=== PATIENT | female | born 1995 | race African-American/Black ===

== ENCOUNTER 2018-06-20 20:02 | Emergency (ER) | payer OTHER ==
[2018-06-20] MEDS ORDERED: ONDANSETRON HCL INJ/PF 4 MG/2 ML SDV IV ONE (20:17)
--- NOTE | 2018-06-20 20:19 | ER Document Report ---
ED Medical Screen (RME) - General Chief Complaint: Vomiting Stated Complaint: VOMITING - [facility] Notes: 06/20/18 20:18 Patient is a 22-year-old female is approximately 8 weeks who presents emergency department complaining of nausea and vomiting over the last couple weeks without any hematemesis. She still urinating normally and having normal bowel movements. She has not had any vaginal discharge, odor, or bleeding. Patient denies any pain. Denies any headache, fever, URI, sore throat, chest pain, palpitations, syncope, cough, shortness of breath, wheeze, dyspnea, abdominal pain, diarrhea, urinary retention, dysuria, hematuria, back pain, or rash. I have treated and performed a rapid initial assessment of this patient. A comprehensive ED assessment and evaluation of the patient, analysis of test results and completion of medical decision making process will be conducted by additional ED providers. PHYSICAL EXAMINATION: GENERAL: Well-appearing, well-nourished and in no acute distress. A&Ox4. Answers questions appropriately. LUNGS: Breath sounds clear to auscultation bilaterally and equal. No wheezes rales or rhonchi. HEART: Regular rate and rhythm without murmurs, rubs, gallops. ABDOMEN: Soft, nondistended abdomen. No guarding, no rebound. Normal bowel sounds present. No CVA tenderness bilaterally. Nontender Extremities: No cyanosis, clubbing, or edema b/l. NEUROLOGICAL: Normal speech, normal gait. PSYCH: Normal mood, normal affect. - Related Data Allergies/Adverse Reactions: No Known Allergies Allergy (Unverified 06/20/18 20:04) Physical Exam - Vital signs Vitals: Temp Pulse Resp BP Pulse Ox 99.2 F 86 14 122/70 100 06/20/18 20:09 06/20/18 20:09 06/20/18 20:09 06/20/18 20:09 06/20/18 20:09 Course - Vital Signs Vital signs: Temp Pulse Resp BP Pulse Ox 99.2 F 86 14 122/70 100 06/20/18 20:09 06/20/18 20:09 06/20/18 20:09 06/20/18 20:09 06/20/18 20:09
[2018-06-20] MEDS: NORMAL SALINE 1000 ML 1,000 ML IV PRN ×2 (20:41→21:44)
[2018-06-20 20:59] LABS: ABSOLUTE LYMPHOCYTES (AUTO) 2.3 10^3/uL (0.5-4.7); ABSOLUTE NEUT (AUTO) 6.5 10^3/uL (1.7-8.2); BASOPHILS % (AUTO) 0.5 % (0-2); EOSINOPHILS % (AUTO) 0.4 % (0-6); HEMATOCRIT 36.8 % (36.0-47.0); LYMPHOCYTES % (AUTO) 23.8 % (13-45); MEAN CORPUSCULAR HEMOGLOBIN 23.4 pg (27.0-33.4); MEAN CORPUSCULAR HGB CONC 32.7 g/dL (32.0-36.0); MEAN CORPUSCULAR VOLUME 72 fl (80-97); MONOCYTES % (AUTO) 9.8 % (3-13); PLATELET COUNT 271 10^3/uL (150-450); RED BLOOD COUNT 5.14 10^6/uL (3.72-5.28); SEGMENTED NEUTROPHILS % (AUTO) 65.5 % (42-78); TOTAL CELLS COUNTED % (AUTO) 100 %; WHITE BLOOD COUNT 9.8 10^3/uL (4.0-10.5)
[2018-06-20 21:22] LABS: ALANINE AMINOTRANSFERASE 23 U/L (9-52); ALBUMIN 4.3 g/dL (3.5-5.0); ALKALINE PHOSPHATASE 68 U/L (38-126); ANION GAP 9 (5-19); ASPARTATE AMINO TRANSFERASE 19 U/L (14-36); BILIRUBIN,DIRECT 0.2 mg/dL (0.0-0.4); BILIRUBIN,TOTAL 0.7 mg/dL (0.2-1.3); BLOOD UREA NITROGEN 6 mg/dL (7-20); CALCIUM 9.8 mg/dL (8.4-10.2); CARBON DIOXIDE 24 mmol/L (22-30); CHLORIDE 102 mmol/L (98-107); GLUCOSE 84 mg/dL (75-110); LIPASE 46.7 U/L (23-300); POTASSIUM 3.8 mmol/L (3.6-5.0); SODIUM 135.2 mmol/L (137-145); TOTAL PROTEIN 7.8 g/dL (6.3-8.2)
[2018-06-20 21:45] LABS: APPEARANCE,URINE CLOUDY; BILIRUBIN,URINE NEGATIVE (NEGATIVE); COLOR,URINE YELLOW; GLUCOSE, URINE NEGATIVE (NEGATIVE); KETONES,URINE TRACE mg/dL (NEGATIVE); LEUKOCYTE ESTERASE,URINE MODERATE (NEGATIVE); NITRITE,URINE NEGATIVE (NEGATIVE); PROTEIN,URINE NEGATIVE (NEGATIVE)
[2018-06-20] MEDS ORDERED: CEPHALEXIN 500 MG CAPSULE PO ONE (22:42)
--- NOTE | 2018-06-20 22:42 | ER Document Report ---
ED General - General Chief Complaint: Vomiting Stated Complaint: VOMITING Time Seen by Provider: 06/20/18 20:19 Notes: 22-year-old female approximately 8 weeks presents emergency department complaining of nausea and vomiting over the last couple weeks without any hematemesis. She still urinating normally and having normal bowel movements. She has not had any vaginal discharge, odor, or bleeding. Patient denies any pain. Denies any headache, fever, URI, sore throat, chest pain, palpitations, syncope, cough, shortness of breath, wheeze, dyspnea, abdominal pain, diarrhea, urinary retention, dysuria, hematuria, back pain, or rash. - Related Data Allergies/Adverse Reactions: No Known Allergies Allergy (Unverified 06/20/18 20:04) Past Medical History - Social History Smoking Status: Never Smoker Frequency of alcohol use: None Drug Abuse: None Family History: None Patient has suicidal ideation: No Patient has homicidal ideation: No Renal/ Medical History: Denies: Hx Peritoneal Dialysis Review of Systems - Review of Systems Constitutional: See HPI EENT: No symptoms reported Cardiovascular: See HPI Respiratory: See HPI Gastrointestinal: See HPI Genitourinary: See HPI Female Genitourinary: No symptoms reported Musculoskeletal: No symptoms reported Skin: No symptoms reported Hematologic/Lymphatic: No symptoms reported Neurological/Psychological: No symptoms reported Physical Exam - Vital signs Vitals: Temp Pulse Resp BP Pulse Ox 99.2 F 86 14 122/70 100 06/20/18 20:09 06/20/18 20:09 06/20/18 20:09 06/20/18 20:09 06/20/18 20:09 - Notes Notes: PHYSICAL EXAMINATION: Reviewed vital signs and charting by RN GENERAL: Alert, interacts well. No acute distress. HEAD: Normocephalic, atraumatic. EYES: Pupils equal and round. Extraocular movements intact. ENT: Oral mucosa moist NECK: Full range of motion. Supple. Trachea midline. LUNGS: Clear to auscultation bilaterally, no wheezes, rales, or rhonchi. No respiratory distress. HEART: Regular rate and rhythm. No murmur ABDOMEN: soft, non-tender. Non-distended. Bowel sounds present. no McBurney's point tenderness, no Tijerina sign. EXTREMITIES: Moves all 4 extremities spontaneously. No edema, No cyanosis. Normal distal neurovascular exam BACK: No CVAT NEUROLOGIC: Oriented and appropriate. Normal speech. PSYCH: Normal affect, normal mood. SKIN: Warm, dry, normal turgor. No rashes or lesions noted. PHYSICAL EXAMINATION: Course - Re-evaluation Re-evalutation: 06/20/18 22:39 Patient reports feeling much better after IV rehydration and Zofran. Urinalysis does show evidence of a UTI and patient will be treated with Keflex. Blood work normal. Patient wishes to be discharged as she is feeling better. - Vital Signs Vital signs: Temp Pulse Resp BP Pulse Ox 99.2 F 86 14 122/70 100 06/20/18 20:09 06/20/18 20:09 06/20/18 20:09 06/20/18 20:09 06/20/18 20:09 - Laboratory Result Diagrams: 06/20/18 20:36 06/20/18 20:36 Laboratory results interpreted by me: 06/20/18 06/20/18 06/20/18 20:36 20:36 20:36 MCV 72 L MCH 23.4 L RDW 16.0 H Sodium 135.2 L BUN 6 L Beta HCG, Quant 997114.00 H Urine Ketones TRACE H Urine Urobilinogen 4.0 H Ur Leukocyte Esterase MODERATE H Discharge - Discharge Clinical Impression: Nausea and vomiting during Condition: Good Disposition: HOME, SELF-CARE Additional Instructions: You have been seen for vomiting during . You should continue to drink plenty of water and consider taking a solution such as Pedialyte if your having difficulty eating food. Please return if you become unable to drink any fluids for more than 12 hours, urinate less than twice a day, pass out, or have any oth er symptoms that are concerning to you. For nausea and vomiting during I recommend: Start with 10-12.5 mg of pyridoxine (vitamin B6) three times a day for 2 days. If not fully effective, Increase to 12.5 mg of pyridoxine four times a day for 2 days. If not fully effective, Increase to 25 mg of pyridoxine three times a day for 2 days. If not fully effective, Continue 25 mg pyridoxine 3 times a day, and add 12.5 mg of doxylamine before bedtime each day for 2 days. If not fully effective, Continue 25 mg pyridoxine 3 times a day, and take 12.5 mg of doxylamine twice a day. If not fully effective, Continue 25 mg pyridoxine 3 times a day, and take 12.5 mg of doxylamine three times a day. If not fully effective, Continue 25 mg pyridoxine 3 times a day, and 12.5 mg of doxylamine 3 times a day, while adding Emetrol, one to two tablespoons (15-30 cc) taken once or twice a day as needed. (Emetrol is an [id number] mixture of sugar syrups and phosphoric acid [phosphorylated carbohydrate solution]) that acts by soothing the actual wall of the gastrointestinal tract). If not fully effective, Consult with your doctor. I have also given you a prescription for Zofran that you can take as needed for nausea. He can take 1 dissolvable tablet every 4-6 hours as needed. Please follow-up with your OB for your appointment on July 03.
[2018-06-20] MEDS ORDERED: ONDANSETRON ODT 4 MG TAB (6 TAB/ER DISP) PO PRN (22:44)
[2018-06-20 22:56] VITALS: BP 102/60
== END 2018-06-20 22:56 | disposition home or self-care (01) ==
LOC: ER 20:02
DX: O21.9 Vomiting of pregnancy, unspecified (principal); Z3A.08 8 weeks gestation of pregnancy
CPT/HCPCS: 99284; 96361; 96374; 36415; 87086; 84702; 83690; 85025; 80053; 81001; J2405; J7030